=== PATIENT | female | born 1980 | race African-American/Black ===

== ENCOUNTER 2024-02-14 08:38 | Emergency (ER) | payer BC ==
[~2024-02-14] VITALS: Ht 165.1 cm; Wt 107.0 kg
[2024-02-14 08:47] VITALS: O2SAT 100
[2024-02-14] MEDS: SODIUM CHLORIDE 0.9% (SEPSIS BOLUS) IV ONE (09:30)
[2024-02-14 09:41] LABS: BASOPHILS % 0.7 % (0.0-2.0); DIFFERENTIAL COMMENT 0; EOSINOPHILS % 3.9 % (0.0-5.0); HEMOGLOBIN. 11.4 g/dL (12.0-16.0); LYMPHOCYTES % 29.5 % (20.0-50.0); MEAN CORPUSCULAR HEMOGLOBIN 23.2 pg (28.0-32.0); MEAN CORPUSCULAR HGB CONC 31.7 g/dL (31.0-37.0); MEAN PLATELET VOLUME 9.1 fl (7.4-10.4); MONOCYTES % 6.1 % (2.0-8.0); NEUTROPHILS % 59.8 % (40.0-76.0); PLATELET 440 x1000/uL (130-400); RED BLOOD CELL COUNT 4.93 mill/uL (4.2-5.4); RED CELL DISTRIBUTION WIDTH 16.8 % (11.6-14.6); WHITE BLOOD COUNT 11.9 x1000/uL (4.5-11.0)
[2024-02-14] MEDS: CEFTRIAXONE 1GM/50ML 50 ML IV ONE (09:44)
[2024-02-14 09:51] LABS: CARBON DIOXIDE 22 mEq/L (21-32); CHLORIDE 105 mEq/L (98-107); POTASSIUM 3.1 mEq/L (3.5-5.1); SODIUM 138 mEq/L (136-145)
[2024-02-14 09:52] LABS: CALCIUM 9.3 mg/dL (8.7-10.4)
[2024-02-14 09:55] LABS: HCG SCREEN NEGATIVE
[2024-02-14 09:56] LABS: CREATININE 0.9 mg/dL (0.6-1.0)
[2024-02-14 09:57] LABS: GLUCOSE 171 mg/dL (70-105); UREA NITROGEN BLOOD 8 mg/dL (9-23)
[2024-02-14 09:58] LABS: LACTIC ACID 2.3 mmol/L (0.4-2.0)
[2024-02-14 09:59] LABS: ALANINE AMINOTRANSFERASE 12 IU/L (10-49); ALBUMIN 4.3 g/dL (3.2-4.8); ASPARTATE AMINOTRANSFERASE 15 IU/L (<34); BILIRUBIN DIRECT 0.1 mg/dL (<=3.0); BILIRUBIN TOTAL 0.5 mg/dL (0.1-1.0); PROTEIN TOTAL 8.3 g/dL (6.0-8.3); PROTHROMBIN TIME 10.7 sec (9.6-11.0)
[2024-02-14] MEDS: POTASSIUM CHLORIDE 20MEQ TABLET SR PO ONE (10:37)
[2024-02-14 12:32] LABS: CLARITY URINE CLEAR (CLEAR); COLOR URINE RED (YELLOW); GLUCOSE URINE NEGATIVE (NEGATIVE); KETONES URINE NEGATIVE (NEGATIVE); LEUKOCYTE ESTERASE URINE TRACE (NEGATIVE); NITRITE URINE NEGATIVE (NEGATIVE); OCCULT BLOOD URINE 3+ (NEGATIVE); PROTEIN URINE 3+ (NEGATIVE); SPECIFIC GRAVITY URINE 1.015 (1.005-1.030); UROBILINOGEN URINE 0.2 E.U./dL (0.2-1.0)
[2024-02-14 12:47] LABS: BACTERIA URINE 1+; RBC URINE TNTC /hpf (0-2); SQUAMOUS EPITHELIAL CELL URINE 1+ /lpf (RARE/1+); YEAST URINE NONE SEEN
[2024-02-14] MEDS ORDERED: CEFP200T13 MT (14:14)
[2024-02-14 14:15] VITALS: BP 120/80; PULSE 81; RESP 16; TEMP 36.61404; O2SAT 100
== END 2024-02-14 14:15 | disposition left against medical advice (07) ==
LOC: ER 08:38
DX: N12 Tubulo-interstitial nephritis, not specified as acute or chronic (principal); E11.9 Type 2 diabetes mellitus without complications; I10 Essential (primary) hypertension
CPT/HCPCS: 99285; 96365; 80076; 80048; 81003; 84703; 83605; 85025; 85610; 87040; 87086; 36415; 84145; 93005; J0696; J7030